=== PATIENT | female | born 1955 | race Caucasian/White ===

== ENCOUNTER → 2016-10-21 | Outpatient (CLI) | payer OTHER ==
[2014-08-27 13:05] VITALS: BP 146/90
[~2016-10-21] MED LIST: ADVAIR 100/28 DISKU1 INH; LOPRESSOR 550 MG/TAB PO; PLAVIX 75MG TAB75 MG PO; PREVACID 30MG30 M1 PO; PROVENTIL0.09 MG/A1 INH; ULTRAM50 MG PO; XANAX1 MG PO; ZOLOFT50 MG PO; ZYRTEC10 MG PO
== END ==
LOC: LAB 10:12
DX: R19.8 Other specified symptoms and signs involving the digestive system and abdomen (principal); R10.12 Left upper quadrant pain; G89.29 Other chronic pain; R53.81 Other malaise; R63.4 Abnormal weight loss

== ENCOUNTER → 2016-10-27 | Outpatient (CLI) | payer OTHER ==
[2014-08-27 13:05] VITALS: BP 146/90
== END ==
LOC: RAD 11:19
DX: R16.0 Hepatomegaly, not elsewhere classified (principal); K76.0 Fatty (change of) liver, not elsewhere classified; K57.90 Diverticulosis of intestine, part unspecified, without perforation or abscess without bleeding
CPT/HCPCS: Q9967

== ENCOUNTER → 2017-02-23 | Outpatient (CLI) | payer OTHER ==
[2014-08-27 13:05] VITALS: BP 146/90
== END ==
LOC: MAMMO 11:08
DX: Z12.31 Encounter for screening mammogram for malignant neoplasm of breast (principal)
CPT/HCPCS: G0202

== ENCOUNTER → 2017-03-22 | Outpatient (CLI) | payer OTHER ==
[~2017-03-22] VITALS: Ht 149.9 cm; Wt 94.5 kg
[~2017-03-22] MED LIST changes: +ALPRAZOLAM1 MG PO; +ATORVASTATIN CA80 MG PO; +BYSTOLIC2.5 MG PO; +METROGEL0.751; +ZOLOFT 50MG50 MG PO; -ZOLOFT50 MG PO
[2017-03-22 12:47] LABS: EOS # 0.2 (0.04-0.40); EOS % 3.1 % (1.0-5.0); HEMATOCRIT 44.4 % (37.0-47.0); HEMOGLOBIN 14.3 g/dL (12.5-16.0); LYMPH# 1.7 (1.50-4.00); MEAN CELL VOLUME 88 fl (78-100); MEAN CORPUSCULAR HEMOGLOBIN 28 pg (27-31); MEAN CORPUSCULAR HGB CONC 32 g/dL (33-37); MEAN PLATELET VOLUME 9.5 fl (7.4-10.4); MONO # 0.5 (0.20-0.80); PLATELET COUNT 226 K/mm3 (130-400); RED BLOOD COUNT 5.04 M/mm3 (4.10-5.30); RED CELL DISTRIBUTION WIDTH 14.9 % (11.5-14.5); WHITE BLOOD COUNT 7.5 K/mm3 (4.8-10.8)
[2017-03-22 12:51] VITALS: BP 118/74
[2017-03-22 13:05] LABS: ALBUMIN 4.3 g/dL (3.5-5.0); BUN/CREATININE RATIO 14.8 (6.0-26.0); CALCIUM 9.2 mg/dL (8.4-10.2); POTASSIUM 4.1 mmol/L (3.6-5.0); TOTAL BILIRUBIN 0.6 mg/dL (0.2-1.3); TOTAL PROTEIN 7.5 g/dL (6.3-8.2)
[2017-03-22 13:14] LABS: PH-URINE 6.5 (5.0 - 8.0); URINE APPEARANCE CLEAR; URINE COLOR YELLOW
[2017-03-22 13:15] LABS: URINE BILIRUBIN NEGATIVE (NEGATIVE); URINE BLOOD NEGATIVE (NEGATIVE); URINE GLUCOSE NEGATIVE (NEGATIVE); URINE KETONE NEGATIVE (NEGATIVE); URINE LEUKOCYTE ESTERASE NEGATIVE (NEGATIVE); URINE NITRATE NEGATIVE (NEGATIVE); URINE PROTEIN(semi-quant) TRACE mg/dL (NEGATIVE); URINE UROBILINOGEN NORMAL (NORMAL)
[2017-03-22 13:16] LABS: TROPONIN-I < 0.03 ng/mL (0.00-0.06)
== END ==
LOC: LAB 12:22 → AMSURD 12:22
PROVIDERS: Nurse Practitioner Family
DX: R53.81 Other malaise (principal); R11.0 Nausea

== ENCOUNTER → 2018-05-01 | Outpatient (CLI) | payer BC ==
[~2018-05-01] VITALS: Ht 149.9 cm; Wt 94.5 kg
[~2018-05-01] MED LIST changes: +MASON NATURAL1000 IU PO; +PROTONIX20 M1 PO; +VENLAFAXINE HYD75 MG PO
[2018-05-01 09:25] VITALS: BP 136/83
[2018-05-01 11:15] VITALS: BP 150/78
--- NOTE | 2018-05-01 11:15 | NUR ---
IV fluids finished infusing. Pt states "feeling better". INT removed without difficulty. Pt denies further needs, Offered wheelchair out of facility. Patient adamantly refused. Pt ambulatory out of facility.
== END ==
LOC: AMSURD 08:48
DX: G43.909 Migraine, unspecified, not intractable, without status migrainosus (principal); R11.10 Vomiting, unspecified
CPT/HCPCS: J7030

== ENCOUNTER → 2019-01-10 | Outpatient (CLI) | payer BC ==
[2018-05-01 11:15] VITALS: BP 150/78
[2019-01-10 14:30] LABS: EOS # 0.1 (0.04-0.40); EOS % 0.6 % (1.0-5.0); HEMATOCRIT 46.9 % (37.0-47.0); HEMOGLOBIN 15.3 g/dL (12.5-16.0); LYMPH# 1.4 (1.50-4.00); MEAN CELL VOLUME 89 fl (78-100); MEAN CORPUSCULAR HEMOGLOBIN 29 pg (27-31); MEAN CORPUSCULAR HGB CONC 33 g/dL (33-37); MEAN PLATELET VOLUME 9.6 fl (7.4-10.4); MONO # 0.6 (0.20-0.80); NEU # 7.8 (1.40-6.50); PLATELET COUNT 303 K/mm3 (130-400); RED BLOOD COUNT 5.28 M/mm3 (4.10-5.30); RED CELL DISTRIBUTION WIDTH 14.4 % (11.5-14.5); WHITE BLOOD COUNT 10.1 K/mm3 (4.8-10.8)
[2019-01-10 14:41] LABS: ALBUMIN 4.4 g/dL (3.4-4.8); POTASSIUM 3.9 mmol/L (3.5-5.1)
[2019-01-10 14:43] LABS: CALCIUM 9.7 mg/dL (8.3-10.5)
[2019-01-10 14:44] LABS: TOTAL PROTEIN 7.8 g/dL (6.2-8.1); URINE APPEARANCE CLEAR; URINE BILIRUBIN NEGATIVE (NEGATIVE); URINE BLOOD NEGATIVE (NEGATIVE); URINE COLOR YELLOW; URINE GLUCOSE NEGATIVE (NEGATIVE); URINE KETONE 2+ (NEGATIVE); URINE LEUKOCYTE ESTERASE NEGATIVE (NEGATIVE); URINE MUCUS PRESENT (NOT PRESENT); URINE NITRATE NEGATIVE (NEGATIVE); URINE PROTEIN(semi-quant) NEGATIVE (NEGATIVE); URINE UROBILINOGEN NORMAL (NORMAL)
[2019-01-10 14:46] LABS: TOTAL BILIRUBIN 0.5 mg/dL (0.2-1.2)
== END ==
LOC: LAB 14:19
PROVIDERS: Physician Assistant
DX: I25.10 Atherosclerotic heart disease of native coronary artery without angina pectoris (principal); K21.9 Gastro-esophageal reflux disease without esophagitis; F41.9 Anxiety disorder, unspecified

== ENCOUNTER → 2019-02-13 | Outpatient (CLI) | payer BC ==
[2018-05-01 11:15] VITALS: BP 150/78
== END ==
LOC: MAMMO 08:30
DX: Z12.31 Encounter for screening mammogram for malignant neoplasm of breast (principal)

== ENCOUNTER 2019-12-20 15:19 | Emergency (ER) | payer BC ==
[~2019-12-20] VITALS: Ht 149.9 cm; Wt 88.6 kg
[~2019-12-20 15:19] MED LIST changes: +ADVAIR DISKUS1 DSK IH; +CLOPIDOGREL75 M2 PO; +LANSOPRAZOLE30 M2 PO; +PREVACID15 M1 PO; +ZOFRAN ODT4 MG PO; +ZYRTEC ALLERGY10 MG PO
[2019-12-20 16:51] LABS: ALBUMIN 4.5 g/dL (3.4-4.8); POTASSIUM 3.8 mmol/L (3.5-5.1)
[2019-12-20 16:52] LABS: CALCIUM 10.1 mg/dL (8.3-10.5)
[2019-12-20 16:53] LABS: TOTAL PROTEIN 7.8 g/dL (6.2-8.1)
[2019-12-20 16:55] LABS: TOTAL BILIRUBIN 0.4 mg/dL (0.2-1.2)
[2019-12-20 17:00] LABS: EOS # 0.1 (0.04-0.40); EOS % 0.9 % (1.0-5.0); HEMATOCRIT 48.5 % (37.0-47.0); LYMPH# 1.9 (1.50-4.00); MEAN CELL VOLUME 88 fl (78-100); MEAN CORPUSCULAR HEMOGLOBIN 29 pg (27-31); MEAN CORPUSCULAR HGB CONC 33 g/dL (33-37); MEAN PLATELET VOLUME 10.6 fl (7.4-10.4); MONO # 0.8 (0.20-0.80); NEU # 7.8 (1.40-6.50); PLATELET COUNT 297 K/mm3 (130-400); RED BLOOD COUNT 5.52 M/mm3 (4.10-5.30); RED CELL DISTRIBUTION WIDTH 14.5 % (11.5-14.5); WHITE BLOOD COUNT 10.7 K/mm3 (4.8-10.8)
[2019-12-20 17:06] LABS: URINE APPEARANCE CLEAR; URINE BILIRUBIN NEGATIVE (NEGATIVE); URINE BLOOD NEGATIVE (NEGATIVE); URINE COLOR DARK YELLOW; URINE GLUCOSE NEGATIVE (NEGATIVE); URINE KETONE 2+ (NEGATIVE); URINE LEUKOCYTE ESTERASE TRACE (NEGATIVE); URINE NITRATE NEGATIVE (NEGATIVE); URINE PROTEIN(semi-quant) TRACE mg/dL (NEGATIVE); URINE UROBILINOGEN NORMAL (NORMAL); URINE WBC 0-1 /hpf (0-3)
[2019-12-20 17:07] LABS: URINE MUCUS PRESENT (NOT PRESENT)
[2019-12-20] MEDS ORDERED: PHENERGAN 25 TA25 MG PO (18:56)
[2019-12-20] MEDS ORDERED: FLAGYL500 M1 PO (18:56)
[2019-12-20] MEDS ORDERED: CIPRO500 M1 PO (18:56)
[2019-12-20 22:10] VITALS: BP 128/99
== END 2019-12-20 22:10 | disposition home or self-care (01) ==
LOC: ED 15:19
PROVIDERS: Nurse Practitioner Primary Care
DX: K57.92 Diverticulitis of intestine, part unspecified, without perforation or abscess without bleeding (principal); I10 Essential (primary) hypertension; I25.2 Old myocardial infarction; Z90.49 Acquired absence of other specified parts of digestive tract; Z90.710 Acquired absence of both cervix and uterus; Z91.041 Radiographic dye allergy status; Z88.0 Allergy status to penicillin; Z88.2 Allergy status to sulfonamides; Z88.8 Allergy status to other drugs, medicaments and biological substances; Z79.02 Long term (current) use of antithrombotics/antiplatelets
CPT/HCPCS: J0744; J2405; J2765; J3490; J7030; Q9967

== ENCOUNTER → 2020-05-06 | Outpatient (CLI) | payer BC ==
[~2020-05-06] MED LIST changes: +CIPRO500 M1 PO; +FLAGYL500 M1 PO; +PHENERGAN 25 TA25 MG PO
[2020-05-06 10:45] VITALS: BP 131/89
[2020-05-06 11:59] VITALS: BP 120/75
== END ==
LOC: AMSURD 10:30
DX: R82.4 Acetonuria (principal)
CPT/HCPCS: J7030

== ENCOUNTER → 2021-02-27 | Outpatient (CLI) | payer BC ==
[2021-02-27 11:35] LABS: BASO # 0.02 K/mm3 (0.02-0.10); EOS # 0.24 K/mm3 (0.04-0.40); EOS % 3.6 % (1.0-5.0); HEMATOCRIT 44.6 % (37.0-47.0); HEMOGLOBIN 14.3 g/dL (12.5-16.0); LYMPH# 1.35 K/mm3 (1.50-4.00); MEAN CELL VOLUME 91 fl (78-100); MEAN CORPUSCULAR HEMOGLOBIN 29 pg (27-31); MEAN CORPUSCULAR HGB CONC 32 g/dL (33-37); MEAN PLATELET VOLUME 9.5 fl (7.4-10.4); MONO # 0.53 K/mm3 (0.20-0.80); NEU # 4.38 K/mm3 (1.40-6.50); PLATELET COUNT 229 K/mm3 (130-400); RED BLOOD COUNT 4.88 M/mm3 (4.10-5.30); RED CELL DISTRIBUTION WIDTH 13.9 % (11.5-14.5); WHITE BLOOD COUNT 6.6 K/mm3 (4.8-10.8)
[2021-02-27 11:47] LABS: ALBUMIN 4.1 g/dL (3.4-4.8); POTASSIUM 4.5 mmol/L (3.5-5.1)
[2021-02-27 11:48] LABS: CALCIUM 9.6 mg/dL (8.3-10.5)
[2021-02-27 11:49] LABS: TOTAL PROTEIN 6.9 g/dL (6.2-8.1)
[2021-02-27 11:51] LABS: TOTAL BILIRUBIN 0.2 mg/dL (0.2-1.2)
== END ==
LOC: MAMMO 09:30 → LAB 09:43 → MAMMO 09:43
PROVIDERS: Physician Assistant
DX: Z00.00 Encounter for general adult medical examination without abnormal findings (principal); Z13.29 Encounter for screening for other suspected endocrine disorder; Z13.220 Encounter for screening for lipoid disorders; Z13.1 Encounter for screening for diabetes mellitus

== ENCOUNTER → 2021-05-05 | Outpatient (CLI) | payer BC ==
[2021-05-05 10:51] LABS: BASO # 0.04 K/mm3 (0.02-0.10); EOS # 0.17 K/mm3 (0.04-0.40); EOS % 1.9 % (1.0-5.0); HEMATOCRIT 51.9 % (37.0-47.0); HEMOGLOBIN 17.4 g/dL (12.5-16.0); LYMPH# 1.89 K/mm3 (1.50-4.00); MEAN CELL VOLUME 88 fl (78-100); MEAN CORPUSCULAR HEMOGLOBIN 29 pg (27-31); MEAN CORPUSCULAR HGB CONC 34 g/dL (33-37); MEAN PLATELET VOLUME 9.7 fl (7.4-10.4); MONO # 0.73 K/mm3 (0.20-0.80); NEU # 5.97 K/mm3 (1.40-6.50); PLATELET COUNT 301 K/mm3 (130-400); RED BLOOD COUNT 5.93 M/mm3 (4.10-5.30); RED CELL DISTRIBUTION WIDTH 13.8 % (11.5-14.5); WHITE BLOOD COUNT 8.9 K/mm3 (4.8-10.8)
[2021-05-05 11:01] LABS: ALBUMIN 4.9 g/dL (3.4-4.8); POTASSIUM 4.5 mmol/L (3.5-5.1)
[2021-05-05 11:02] LABS: CALCIUM 10.7 mg/dL (8.3-10.5)
[2021-05-05 11:03] LABS: TOTAL PROTEIN 8.3 g/dL (6.2-8.1)
[2021-05-05 11:05] LABS: TOTAL BILIRUBIN 0.6 mg/dL (0.2-1.2)
[2021-05-05 11:11] LABS: PARTIAL THROMBOPLASTIN TIME 24.4 SECONDS (21.0-32.0)
== END ==
LOC: LAB 10:20
PROVIDERS: Physician Assistant
DX: Z01.818 Encounter for other preprocedural examination (principal)

== ENCOUNTER → 2021-11-19 | Outpatient (CLI) | payer BC ==
[2021-11-19 15:53] LABS: BASO # 0.03 K/mm3 (0.02-0.10); EOS # 0.13 K/mm3 (0.04-0.40); EOS % 1.5 % (1.0-5.0); HEMATOCRIT 50.7 % (37.0-47.0); HEMOGLOBIN 16.6 g/dL (12.5-16.0); LYMPH# 1.64 K/mm3 (1.50-4.00); MEAN CELL VOLUME 88 fl (78-100); MEAN CORPUSCULAR HEMOGLOBIN 29 pg (27-31); MEAN CORPUSCULAR HGB CONC 33 g/dL (33-37); MEAN PLATELET VOLUME 10.2 fl (7.4-10.4); MONO # 0.66 K/mm3 (0.20-0.80); NEU # 6.01 K/mm3 (1.40-6.50); PLATELET COUNT 270 K/mm3 (130-400); RED BLOOD COUNT 5.74 M/mm3 (4.10-5.30); RED CELL DISTRIBUTION WIDTH 13.7 % (11.5-14.5); WHITE BLOOD COUNT 8.6 K/mm3 (4.8-10.8)
[2021-11-19 15:57] LABS: ALBUMIN 4.6 g/dL (3.4-4.8); POTASSIUM 3.9 mmol/L (3.5-5.1); SODIUM 142 mmol/L (136-145)
[2021-11-19 15:58] LABS: CALCIUM 10.4 mg/dL (8.3-10.5)
[2021-11-19 15:59] LABS: GLUCOSE 107 mg/dL (65-105); TOTAL PROTEIN 7.9 g/dL (6.2-8.1)
[2021-11-19 16:00] LABS: CARBON DIOXIDE 25 mmol/L (23-31)
[2021-11-19 16:01] LABS: TOTAL BILIRUBIN 0.5 mg/dL (0.2-1.2)
[2021-11-19 16:05] LABS: AST-SGOT 25 U/L (5-34)
[2021-11-19 16:06] LABS: ALT/SGPT 26 U/L (0-55)
[2021-11-19 16:10] LABS: URINE APPEARANCE CLOUDY; URINE BILIRUBIN NEGATIVE (NEGATIVE); URINE BLOOD NEGATIVE (NEGATIVE); URINE COLOR YELLOW; URINE GLUCOSE NEGATIVE (NEGATIVE); URINE KETONE TRACE (NEGATIVE); URINE LEUKOCYTE ESTERASE TRACE (NEGATIVE); URINE NITRATE NEGATIVE (NEGATIVE); URINE PROTEIN(semi-quant) TRACE (NEGATIVE); URINE UROBILINOGEN NORMAL (NORMAL); URINE WBC 0-1 /hpf (0-3)
[2021-11-19 16:26] LABS: TROPONIN-I < 0.030 ng/mL (<0.030)
== END ==
LOC: LAB 13:38
PROVIDERS: Nurse Practitioner Family
DX: Z20.822 Contact with and (suspected) exposure to COVID-19 (principal); R53.83 Other fatigue; R11.0 Nausea

== ENCOUNTER → 2021-11-19 | Outpatient (CLI) | payer BC ==
[~2021-11-19] VITALS: Ht 149.9 cm; Wt 90.0 kg
[2021-11-19 14:10] VITALS: BP 138/90
[2021-11-19 15:20] VITALS: BP 149/91
== END ==
LOC: AMSURD 13:43
DX: Z20.822 Contact with and (suspected) exposure to COVID-19 (principal); R53.83 Other fatigue; R11.0 Nausea
CPT/HCPCS: J7030

== ENCOUNTER → 2022-06-07 | Day surgery (SDC) | payer BC | END | disposition home or self-care (01) | LOC: MSO 07:57 | DX: Z12.11 Encounter for screening for malignant neoplasm of colon (principal); K57.30 Diverticulosis of large intestine without perforation or abscess without bleeding; Z95.5 Presence of coronary angioplasty implant and graft; Z86.010 Personal history of colon polyps | CPT/HCPCS: 00812; J2704; J7120 ==

== ENCOUNTER → 2024-06-20 | Outpatient (CLI) | payer MEDICARE, OTHER | LOC: RAD 14:17 → MAMMO 14:30 | DX: Z13.820 Encounter for screening for osteoporosis (principal); Z12.31 Encounter for screening mammogram for malignant neoplasm of breast; Z78.0 Asymptomatic menopausal state ==